=== PATIENT | male | born 1975 | race Caucasian/White ===

== ENCOUNTER 2021-07-25 18:33 | Emergency (ER) | payer SELFPAY ==
[~2021-07-25] VITALS: Ht 175.3 cm; Wt 100.0 kg
[2021-07-25] MEDS ORDERED: LOPID600 M1 PO (19:49)
[2021-07-25] MEDS ORDERED: ZESTRIL20 M1 PO (19:49)
[2021-07-25] MEDS ORDERED: CARDIZEM CD240 M1 PO (19:50)
[2021-07-25] MEDS ORDERED: ORPHENADRINE C100 MG PO (21:21)
[2021-07-25] MEDS ORDERED: KETOROLAC10 MG PO (21:21)
[2021-07-25] MEDS ORDERED: PERCOCET 325 MG1 TA2 PO (21:21)
[2021-07-25 21:40] VITALS: BP 140/87
== END 2021-07-25 21:40 | disposition home or self-care (01) ==
LOC: ED 18:33
DX: M54.16 Radiculopathy, lumbar region (principal); F17.210 Nicotine dependence, cigarettes, uncomplicated
CPT/HCPCS: J1885; J2360